=== PATIENT | female | born 2005 | race Caucasian/White ===

== ENCOUNTER 2024-06-28 14:10 | Emergency (ER) | payer OTHER, SELFPAY ==
[2024-06-28 14:12] VITALS: BP 126/83
--- NOTE | 2024-06-28 15:10 | ED.GENMED ---
History of Present Illness
General
Chief Complaint: Prescription Refill
Time Seen by Provider: 06/28/24 14:53
History of Present Illness
History of Present Illness:
18-year-old female with history of bipolar disorder presenting to the emergency department for medication refill. Patient reports she ran out of her medication a week ago and her insurance was switched, and her therapist is no longer able to see
her based on insurance reasons. She is unable to get into a new therapist until about a month from now. She is presenting for refill of lamotrigine. She reports since being off medication for the last week, has had some increased depression,
however denies feelings of wanting to hurt herself or others. Denies present chest pain or difficulty breathing. Has had some fogginess. Denies fever. Denies any hallucinations. Denies any manic episodes. Denies additional medical complaints.
Phy Exam
Physical Exam
Physical Exam:
General: Well-appearing, no clinical signs of dehydration, nontoxic and in no acute distress
HEENT: protecting airway
Neck: appears supple
CV: Normal heart rate, regular rhythm
Resp: No accessory muscle use, no increased work of breathing, lungs clear to auscultation bilaterally
Abd: Soft and non-distended
Extremities: No deformities, no swelling, no erythema
Neuro: alert, no focal neurologic deficit
: deferred
Rectal: deferred
Psych: Normal affect
Skin: Intact
Course
Vital Signs
Initial and Last Documented VS:
Initial Vital Signs
Temp Pulse Resp BP Pulse Ox
98.1 F 103 16 126/83 100
06/28/24 14:12 06/28/24 14:12 06/28/24 14:12 06/28/24 14:12 06/28/24 14:12
Last Documented Vital Signs
Temp Pulse Resp BP Pulse Ox
98.1 F 103 16 126/83 100
06/28/24 14:12 06/28/24 14:12 06/28/24 14:12 06/28/24 14:12 06/28/24 14:12
MDM/Problems Addressed
MDM/Problems Addressed:
18-year-old female presenting for medication refill for lamotrigine. Vital signs are normal.
On exam, patient well-appearing, appropriate affect. She does not appear to be a threat to herself or others. Notes unable to fill prescription given insurance issues and difficulty with follow-up. For this reason, will provide prescription for 1
month. Otherwise feel stable for discharge, notes that she has intake appointment in a month. Return precautions discussed and patient verbalized understanding
*Critical Care Note
Total Time (30-74mins, 75-104mins- exclusive of procedures): Not Applicable
ED Attending Note
-
Portions of this chart may have been created with voice recognition software.� Occasional wrong word or��sound alike� substitutions may have occurred due to the inherent limitations of voice recognition software.
Discharge Plan
Departure
Patient Disposition: Home (Routine Discharge)
Date of Disposition: 06/28/24
Time of Disposition: 15:07
Patient with high blood pressure during this ER visit?: No
Condition: Good
Discharge Problem:
Medication refill
Instructions: Bipolar disorder
Prescriptions:
New
lamotrigine 100 mg tablet
100 mg PO DAILY 30 Days Qty: 30 0RF
Referrals:
NONE,* [Family Provider] -
Activity Restrictions/Additional Instructions:
You were seen in the emergency department for medication refill
You were prescribed lamotrigine
Please follow-up closely with therapist/psychiatrist.
Return to the emergency department for any worsening of your symptoms, any feelings of wanting to hurt yourself or others, or any development of chest pain, difficulty breathing, abdominal pain with persistent vomiting and inability to tolerate food
or liquid by mouth (concern for dehydration), weakness, headache or confusion, fever greater than 100.4, or any additional symptoms that are concerning to you.
Thank you for choosing [facility].
Interventions
Interventions:
*General Assessment Last Done: 06/28/24 14:12
*ED COVID-19 Vaccine History Last Done: 06/28/24 14:12
Discharge Date and Time
Print Language: AMHARIC
== END 2024-06-28 15:33 | disposition home or self-care (01) ==
LOC: EMR 14:10
PROVIDERS: EMERGENCY PHYSICIAN Student in an Organized Health Care Education/Training Program
DX: Z76.0 Encounter for issue of repeat prescription (principal); F31.9 Bipolar disorder, unspecified; Z91.148 Patient's other noncompliance with medication regimen for other reason
CPT/HCPCS: 99281

== ENCOUNTER 2024-09-04 18:43 | Emergency (ER) | payer OTHER, SELFPAY ==
[2024-09-04 18:45] VITALS: BP 133/86
[2024-09-04 19:57] VITALS: BMI 20.9
[2024-09-04 20:01] VITALS: BP 109/58
[2024-09-04 21:00] VITALS: BP 106/64
--- NOTE | 2024-09-04 21:09 | ED.GENMED ---
History of Present Illness
General
Chief Complaint: Dizziness
Source: patient
Exam Limitations: none
Time Seen by Provider: 09/04/24 20:34
History of Present Illness
History of Present Illness:
18-year-old female presents with dizziness lightheadedness. Started after stopping her Lamictal. No chest pain shortness of breath. Slight headache. Nonfocal headache. No focal neurologic symptoms. Has had similar symptoms in the past when she
stopped her Lamictal
Past History
Past History
ED Past Medical History: Psychiatric (Bipolar)
ED Past Surgical History: Tonsilectomy
Review of Systems
Review of Systems
All Other Systems: Not applicable
Constitutional: Denies fever or chills
Cardiac: Denies chest pain or syncope
ABD/GI: Reports no symptoms
Phy Exam
Physical Exam
Physical Exam:
GENERAL: Alert and oriented in no apparent distress
EYE: Orbits normal.
NECK: Supple, no thyroid palpable
ENT: Pharynx without erythema
CARDIAC: Regular rate and rhythm without any obvious murmurs.
LUNGS: Clear breath sounds,normal
ABDOMEN: Soft, without focal tenderness or distention
NEUROLOGICAL: Alert and oriented , grossly non-focal
SKIN: Warm and dry, no rash or lesion, no discoloration, skin intact.
MUSCULOSKELETAL: No edema,no deformity.Good color
PSYCH: Normal and appropriate interaction.
Course
Orders/Labs/Results
Orders:
Orders
09/04/24 20:40
EKG [Electrocardiogram (*1)] Urgent
Reason for Study: Other
Other Reason for Exam: lightheadedness
09/04/24 20:41
EKG- Treatment ONCE
Test Result ONCE
09/04/24 21:07
Basic Metabolic Panel Urgent
HCG, Serum Qualitative Screen Urgent
09/04/24 21:08
Complete Blood Count/With Diff Urgent
Abnormal Lab Results
09/04/24 09/04/24
21:07 21:08
RBC 3.95 L 10^6/uL
(4.20-5.40)
Hgb 11.8 L g/dL
(12.0-16.0)
Hct 33.7 L %
(37.0-47.0)
Absolute Neuts (auto) 6.9 H 10^3/uL
(1.4-6.5)
Absolute Monos (auto) 0.9 H 10^3/uL
(0.1-0.6)
Glucose 108 H mg/dl
(70-99)
09/04/24 21:08
09/04/24 21:07
Vital Signs
Initial and Last Documented VS:
Initial Vital Signs
Temp Pulse Resp BP Pulse Ox
98.2 F 104 18 133/86 100
09/04/24 18:45 09/04/24 18:45 09/04/24 18:45 09/04/24 18:45 09/04/24 18:45
Last Documented Vital Signs
Temp Pulse Resp BP Pulse Ox
98.2 F 104 18 115/81 97
09/04/24 18:45 09/04/24 18:45 09/04/24 18:45 09/04/24 22:00 09/04/24 22:00
MDM/Problems Addressed
Differential Diagnosis Includes:
Benign exam. Low suspicion for serious etiology of her lightheadedness. Has some upper back pain but this appears musculoskeletal. Will check CBC BMP test EKG. If all stable we will give a small refill of her medication to follow-up
*Pulse Oximetry
Patient hypoxic: no
*EKG
Interpreted by ED Provider?: Yes
*Critical Care Note
Total Time (30-74mins, 75-104mins- exclusive of procedures): Not Applicable
Update Note
Update Note:
Patient is stable nontoxic benign exam. Will discharge to follow-up. Will cover 2 weeks of lamotrigine pending follow-up
ED Attending Note
-
Portions of this chart may have been created with voice recognition software.� Occasional wrong word or��sound alike� substitutions may have occurred due to the inherent limitations of voice recognition software.
Discharge Plan
Departure
Patient Disposition: Home (Routine Discharge)
Date of Disposition: 09/04/24
Time of Disposition: 22:11
Patient with high blood pressure during this ER visit?: Yes
Discharge Problem:
Dizziness
Instructions: Dizziness, BLOOD PRESSURE
Prescriptions:
New
lamotrigine 25 mg tablet
25 mg PO DAILY 14 Days Qty: 14 0RF
lamotrigine 100 mg tablet
100 mg PO DAILY Qty: 14 0RF
No Action
lamotrigine 100 mg tablet
125 mg PO DAILY
Referrals:
Elia Springer MD [Family Provider] - Follow up in 2-3 days
Activity Restrictions/Additional Instructions:
Your prescriptions were called into your pharmacy
1 tablet of each daily
Make sure you follow-up closely
Interventions
Interventions:
*Risk Screen - Suicide Last Done: 09/04/24 18:45
*General Assessment Last Done: 09/04/24 18:45
*Neglect/Abuse Screening Last Done: 09/04/24 18:45
ED- Fall Risk Assessment Last Done: 09/04/24 19:57
*ED COVID-19 Vaccine History Last Done: 09/04/24 19:57
ED- Neurological Assessment Last Done: 09/04/24 19:57
ED- Cardiac Assessment Last Done: 09/04/24 19:57
Discharge Date and Time
Print Language: CYMRAES
[2024-09-04 21:11] VITALS: BP 101/64
[2024-09-04 21:18] LABS: % Basophils 0.3 % (0-2); % Eosinophils 0.6 % (0-6); % Immature Granulocytes 0.3 % (0-0.5); % Lymphocytes 21.9 % (20.5-51.1); % Monocytes 8.7 % (1.7-9.3); % Neutrophils 68.2 % (42.2-75.2); Absolute Eosinophils 0.1 10^3/uL (0-0.7); Absolute Lymphocytes 2.2 10^3/uL (1.2-3.4); Absolute Monocytes 0.9 10^3/uL (0.1-0.6); Absolute Neutrophils 6.9 10^3/uL (1.4-6.5); Hematocrit 33.7 % (37.0-47.0); Hemoglobin 11.8 g/dL (12.0-16.0); Mean Corpuscular Hgb 29.9 pg (27.0-31.0); Mean Corpuscular Volume 85.3 fL (81.0-99.0); Mean Platelet Volume 9.4 fL (7.4-10.4); Nucleated Red Blood Cells % 0 %; Platelet Count 260 10^3/uL (130-400); Red Blood Cell Count 3.95 10^6/uL (4.20-5.40); Red Cell Dist. Width 11.9 % (11.5-14.5); White Blood Cell Count 10.1 10^3/uL (4.8-10.8)
[2024-09-04 21:34] LABS: Blood Urea Nitrogen 11 mg/dl (7-17); Calcium 9.8 mg/dl (8.4-10.2); Carbon Dioxide 28 mmol/L (22-30); Chloride 103 mmol/L (98-107); Estimated Creatinine Clearance 112 ml/min; Glucose 108 mg/dl (70-99); Potassium 4.4 mmol/L (3.5-5.1); Sodium 144 mmol/L (135-145); eGFR > 60.00
[2024-09-04 21:40] LABS: HCG, Serum Qualitative Screen Negative
[2024-09-04 22:00] VITALS: BP 115/81
== END 2024-09-04 22:41 | disposition home or self-care (01) ==
LOC: EMR 18:43
PROVIDERS: EMERGENCY PHYSICIAN Emergency Medicine; FAMILY PHYSICIAN Internal Medicine
DX: R42 Dizziness and giddiness (principal); R03.0 Elevated blood-pressure reading, without diagnosis of hypertension
CPT/HCPCS: 99284; 80048; 84703; 85025; 93005